=== PATIENT | female | born 1940 | race American Indian/Alaskan Native ===

== ENCOUNTER 2018-08-09 11:16 | Day surgery (SDC) | payer MEDICARE ==
[~2018-08-09 11:16] MED LIST: IOPIDINE ONE; MYDRIACYL ONE; NEOFRIN ONE
[2018-08-09] MEDS ORDERED: IOPIDINE OD ONE (11:45)
[2018-08-09] MEDS ORDERED: MYDRIACYL OD ONE (11:45)
[2018-08-09] MEDS ORDERED: NEOFRIN OD ONE (12:46)
[2018-08-10 18:58] VITALS: BP 128/50
== END 2018-08-09 12:48 | disposition home or self-care (01) ==
LOC: OR 11:16
PROVIDERS: ATTEND Ophthalmology
DX: H26.491 Other secondary cataract, right eye (principal); E11.36 Type 2 diabetes mellitus with diabetic cataract; E07.9 Disorder of thyroid, unspecified; Z79.899 Other long term (current) drug therapy; Z79.84 Long term (current) use of oral hypoglycemic drugs; Z79.82 Long term (current) use of aspirin; Z88.2 Allergy status to sulfonamides; Z98.41 Cataract extraction status, right eye; Z98.890 Other specified postprocedural states; Z85.3 Personal history of malignant neoplasm of breast; Z90.12 Acquired absence of left breast and nipple; Z86.2 Personal history of diseases of the blood and blood-forming organs and certain disorders involving the immune mechanism